=== PATIENT | male | born 1945 | race Two or more races ===

== ENCOUNTER 2016-12-21 15:44 | Emergency (ER) | payer MEDICARE, BC ==
[~2016-12-21] VITALS: Ht 160 cm; Wt 90.7 kg
[2016-12-21 16:12] VITALS: BP 106/63
== END 2016-12-21 16:25 | disposition home or self-care (01) ==
LOC: ER 15:48
DX: Z76.0 Encounter for issue of repeat prescription (principal); E11.9 Type 2 diabetes mellitus without complications
CPT/HCPCS: 99282; A4606; Z7610

== ENCOUNTER 2021-06-29 06:12 | Inpatient (IN) | payer OTHER, BC ==
[~2021-06-29] VITALS: Ht 167.6 cm; Wt 83.5 kg
[2021-06-29] MEDS ORDERED: FUROSEMIDE 20 MG/2 ML VIAL ONE (06:28)
[2021-06-29] MEDS ORDERED: FUROSEMIDE 40 MG/4 ML VIAL ONE (06:28)
[2021-06-29] MEDS ORDERED: FUROSEMIDE 40 MG/4 ML VIAL IV ONE (06:30)
--- NOTE | 2021-06-29 06:34 | NUR ---
BIBRA FROM HOME TO ER BED 6. RESPONSIVE TO VOICE AND TACTILE STIMULI. PER EMS, PT WAS FOUND ON THE FLOOR. PT WAS NOTED WITH 02 SAT OF 82% ON RA AND WAS PLACE ON NON REBREATHER MASK @ 15LPM SATTING@ 100%. PT IS NOTED AFIB W/ HX. PT WAS REPORTED NOT TAKING ANY BLOOD THINNERS BY THE DAUGHTER. NO NOTED VISUAL INJURY RELATED TO FALLING. MD WAS AT THE BEDSIDE FOR EVAL.
--- NOTE | 2021-06-29 06:35 | NUR ---
20G IV LINE ESTABLISHED AT [facility] BLOOD DRAWN AND SENT TO LAB
--- NOTE | 2021-06-29 06:45 | NUR ---
covid swab collected and sent to lab
[2021-06-29 07:00] LABS: BASOPHILS # (AUTO) 0.1 K/uL (0.0-0.2); BASOPHILS % (AUTO) 0.4 % (0.0-2.0); HEMATOCRIT 45 % (39-51); LYMPHOCYTES # (AUTO) 0.6 K/uL (0.8-4.8); LYMPHOCYTES % (AUTO) 4.5 % (20.0-44.0); MEAN CORPUSCULAR HGB CONC 31 g/dl (31.0-36.0); MEAN CORPUSCULAR VOLUME 66 fL (80-96); MONOCYTES # (AUTO) 0.4 K/uL (0.1-1.30); MONOCYTES % (AUTO) 2.9 % (2.0-12.0); NEUTROPHILS # (AUTO) 12.7 K/uL (1.8-8.9); NEUTROPHILS % (AUTO) 92.2 % (43.0-81.0); PLATELET COUNT (AUTO) 209 K/uL (150-450); RED BLOOD CELL COUNT(AUTO) 6.78 MIL/uL (4.5-6.0); WHITE BLOOD COUNT (AUTO) 13.7 K/uL (4.3-11.0)
[2021-06-29] MEDS ORDERED: QUET25TA PO (07:02)
[2021-06-29] MEDS ORDERED: FURO40TA5 PO (07:02)
[2021-06-29 07:20] LABS: ALANINE AMINOTRANSFERASE 23 U/L (12-78); ALBUMIN 3.9 g/dL (3.4-5.0); ALKALINE PHOSPHATASE 84 U/L (46-116); ASPARTATE AMINOTRANSFERASE 18 U/L (15-37); BILIRUBIN,DIRECT 0.4 mg/dL (0.0-0.2); BILIRUBIN,TOTAL 1.8 mg/dL (0.2-1.0); CALCIUM, SERUM 9.3 mg/dL (8.5-10.1); CARBON DIOXIDE 25 mmol/L (21-32); CHLORIDE 99 mmol/L (98-107); CREATININE 1.5 mg/dL (0.6-1.3); POTASSIUM 4.7 mmol/L (3.5-5.1); SODIUM SERUM 136 mmol/L (136-145); TOTAL PROTEIN, SERUM 8.1 g/dL (6.4-8.2); UREA NITROGEN, BLOOD 19 mg/dL (7-18)
[2021-06-29 07:22] LABS: GLUCOSE 421 mg/dL (74-106)
--- NOTE | 2021-06-29 07:53 | NUR ---
UPDATED TOM (DAUGHTER) [phone]
--- NOTE | 2021-06-29 10:55 | NUR ---
CHANGED PATIENT BEDDINGS AND GOWN
[2021-06-29] MEDS ORDERED: INSULIN REGULAR, HUMAN 100 UNIT/ML 10 ML VIAL ONE (10:57)
[2021-06-29] MEDS ORDERED: INSULIN REGULAR, HUMAN 100 UNIT/ML 10 ML VIAL SQ ONE (11:00)
--- NOTE | 2021-06-29 11:31 | NUR ---
Patient will go to 327-2
--- NOTE | 2021-06-29 11:33 | NUR ---
ULTRASOUND AT BEDSIDE
--- NOTE | 2021-06-29 11:38 | NUR ---
NURSING SUP GAVE BED 327-2.
--- NOTE | 2021-06-29 11:46 | NUR ---
GAVE REPORT TO SELENE 327-2
[2021-06-29] MEDS ORDERED: LEVOFLOXACIN 500 MG /D5W 100ML 100 ML IV SCH (12:00)
[2021-06-29] MEDS ORDERED: OLANZAPINE 10 MG VIAL IM PRN (12:00)
[2021-06-29] MEDS ORDERED: VANCOMYCIN 1 GM in IV D5W 250 ML IV ONE ×2 (12:00→13:00)
[2021-06-29] MEDS ORDERED: CEFEPIME 1 GM in IV D5W 50 ML IV SCH (12:00)
[2021-06-29] MEDS ORDERED: DEXTROSE 50%-WATER 50 ML DISP.SYRIN IV PRN (12:00)
[2021-06-29] MEDS ORDERED: CEFEPIME 1 GM in IV D5W 50 ML IV ONE (12:00)
[2021-06-29 12:17] LABS: BILIRUBIN,URINE NEGATIVE (NEGATIVE); COLOR,URINE YELLOW (YELLOW); LEUKOCYTE ESTERASE ,URINE NEGATIVE (NEGATIVE); NITRITE, URINE NEGATIVE (NEGATIVE); PROTEIN,URINE TRACE mg/dl (NEGATIVE); UGLUCOSE >=1000 mg/dL (NEGATIVE); UROBILINOGEN,URINE 0.2 EU/dL (0.2)
[2021-06-29 12:20] VITALS: BP 138/68
[2021-06-29] MEDS ORDERED: PIPERACILLIN /TAZOBACTAM 3.375 G in IV D5W 50 ML IV SCH (12:30)
[2021-06-29] MEDS: FUROSEMIDE 100 MG/10 ML VIAL IV SCH ×3 (12:44→20:37)
[2021-06-29] MEDS: ASPIRIN EC 81 MG TABLET.DR PO SCH (12:44)
[2021-06-29] MEDS: INSULIN REGULAR, HUMAN 100 UNIT/ML 3 ML VIAL SQ PRN ×3 (12:58→21:54)
[2021-06-29] MEDS: BLOOD SUGAR DIAGNOSTIC 1 EACH STRIP VI SCH ×3 (12:59→22:36)
[2021-06-29 13:31] LABS: BACTERIA,URINE Moderate /HPF (None Seen); WBC,URINE 0-2 /HPF (0-3)
[2021-06-29 13:32] LABS: SQUAMOUS EPITHELIAL CELL,UR Few /HPF (None Seen)
--- NOTE | 2021-06-29 14:02 | NUR ---
RN NOTES CALLED PHARMACY SPOKE TO ARIELLA PHARMACIST TO FOLLOW UP ON THE ANTIBIOTICS OF DANK AND MEAGAN. PER ARIELLA, SHE SPOKE WITH DR. BAILEY, AND PER MD TO DC ALL ANTIBIOTICS AND CHANGE TO ZOSYN.
--- NOTE | 2021-06-29 14:30 | NUR ---
SENIOR MARKET RESEARCH ANALYST ADMITTING NOTES PT ADMITTED TO UNIT AT 1215 VIA GURNEY FROM E.R. WITH DX OF RESPIRATORY FAILURE. PT IS LETHARGIC AND CONFUSED, UN-ABLE TO ANSWER QUESTIONS. PT'S DAUGHTER VISITED AND GAVE PT'S INFORMATION AND HX. SHE STATED THAT PT IS DNR/DNI, DPOA PAPERS FAXED AND RECEIVED, DR BAILEY MADE AWRE AND IN AGREEMENT. PT IS ON 02 VIA N/C @ 4LPM, TOLERATING WELL, BREATHING UNLABORED WITH SP02 97% AT THIS TIME. PT HAS IV ACCESS ON LAC G#20 INTACT, PATENT AND FLUSHES WELL. PT PLACED ON EXTERNAL FINANCIAL RECORDING CLERK WITH CURRENT READING OF A-FIOB CONTROLLED , HR 89, NO S/S OF CARDIAC DISTRESS NOTED AT THIS TIME. LUNGS NOTED WITH RALES BILATERALLY ON AUSCULTATION. ABDOMEN, SOFT, NON-TENDER AND NON-DISTENDED WITH BOWEL SOUNDS PRESENT ON FOUR QUADRANTS. PHOTOS OF SKIN ISSUES TAKEN AND FILED IN HIS CHART. SAFETY MEASURES IMPLEMENTED: BED PLACED IN LOWEST LOCKED POSITION WITH SR-UP X3. CALL LIGHT W/IN REACH. WILL CONTINUE TO MONITOR PT.
[2021-06-29] MEDS: PIPERACILLIN /TAZOBACTAM 3.375 G in IV D5W 100 ML IV SCH ×2 (15:17→21:35)
[2021-06-29 15:19] LABS: BASOPHILS # (AUTO) 0.1 K/uL (0.0-0.2); BASOPHILS % (AUTO) 0.4 % (0.0-2.0); HEMATOCRIT 43 % (39-51); HEMOGLOBIN 13.2 g/dL (13.5-17.5); LYMPHOCYTES # (AUTO) 1.2 K/uL (0.8-4.8); LYMPHOCYTES % (AUTO) 9.7 % (20.0-44.0); MEAN CORPUSCULAR HGB CONC 31 g/dl (31.0-36.0); MEAN CORPUSCULAR VOLUME 65 fL (80-96); MONOCYTES # (AUTO) 1.1 K/uL (0.1-1.30); MONOCYTES % (AUTO) 8.9 % (2.0-12.0); NEUTROPHILS # (AUTO) 10.2 K/uL (1.8-8.9); PLATELET COUNT (AUTO) 166 K/uL (150-450); WHITE BLOOD COUNT (AUTO) 12.6 K/uL (4.3-11.0)
[2021-06-29 15:36] LABS: ALANINE AMINOTRANSFERASE 23 U/L (12-78); ALBUMIN 3.5 g/dL (3.4-5.0); ALKALINE PHOSPHATASE 74 U/L (46-116); ASPARTATE AMINOTRANSFERASE 34 U/L (15-37); BILIRUBIN,TOTAL 1.8 mg/dL (0.2-1.0); CALCIUM, SERUM 9.1 mg/dL (8.5-10.1); CARBON DIOXIDE 31 mmol/L (21-32); CHLORIDE 97 mmol/L (98-107); CREATININE 1.4 mg/dL (0.6-1.3); GLUCOSE 314 mg/dL (74-106); POTASSIUM 3.9 mmol/L (3.5-5.1); SODIUM SERUM 134 mmol/L (136-145); TOTAL PROTEIN, SERUM 7.6 g/dL (6.4-8.2); UREA NITROGEN, BLOOD 18 mg/dL (7-18)
--- NOTE | 2021-06-29 16:00 | NUR ---
RN NOTES RECEIVED CALL FROM AVIONICS SUPERVISOR ELLA. PER ELLA PT'S LACTIC ACID WENT DOWN FROM 3.2 TO 2.9. WILL CONTINUE TO MONITOR.
[2021-06-29] MEDS: METOPROLOL TARTRATE 25 MG TABLET PO SCH (16:58)
[2021-06-29] MEDS: HEPARIN SODIUM, PORCINE 5000 UNITS/1 ML VIAL SQ SCH (17:01)
[2021-06-29 17:44] LABS: LYMPHOCYTES % (MANUAL) 13 % (16-48); MONOCYTES % (MANUAL) 9 % (0-11.0); NEUTROPHILS % (MANUAL) 78 (42-76)
--- NOTE | 2021-06-29 18:40 | NUR ---
GEODETIC SURVEY DIRECTOR CLOSING NOTES PT IN BED AWAKE AND RESTING AT MODERATE HIGH BACKREST POSITION. A/O X1, VERBALLY RESPONSIVE, CONFUSED AND FORGETFUL. PT ON 02 VIA N/C @ 4LPM, TOLERATING WELL, BREATHING UNLABORED. IV ACCESS ON LAC G#20 INTACT, PATENT AND FLUSHES WELL. ON EXTERNAL CEMETERY WORKER WITH CURRENT READING OF A-FIB CONTROLLED WITH OCCASIONAL PVC'S, HR 80-90', NO C/O OF CARDIAC DISTRESS VOICED. ALL NEEDS AND CARE PROVIDED WELL. SAFETY MEASURES MAINTAINED: BED IN LOWEST LOCKED POSITION WITH SR-UP X3. CALL LIGHT W/IN REACH. WILL ENDORSE VAIBHAV TO INCENDIARY POWDER MIXER NURSE
--- NOTE | 2021-06-29 20:20 | NUR ---
RN GIANCARLO NOTES PT RECEIVE IN BED AWAKE AND RESTING A/O X1, VERBALLY RESPONSIVE, CONFUSED AND FORGETFUL. PT ON 02 VIA N/C @ 4LPM,NO SIGN SOB/DISTRESS NOTED. IV ACCESS ON LAC G#20 INTACT/PATENT.SAFETY MEASURES MAINTAINED: BED IN LOWEST LOCKED POSITION WITH SR-UP X3. CALL LIGHT W/IN REACH.
[2021-06-29 20:25] VITALS: BP 93/53
[2021-06-29] MEDS: ATORVASTATIN 10 MG TABLET PO SCH (21:46)
[2021-06-29] MEDS: INSULIN GLARGINE, 100 UNIT/ML CARTRIDGE SQ SCH (21:50)
[2021-06-29] MEDS ORDERED: CEFEPIME 2 GM in IV D5W 100 ML IV SCH (22:00)
[2021-06-29] MEDS: *INSULIN REGULAR(HUMULIN R)HUM 100 UNIT/ML VIAL SQ PRN (22:35)
[2021-06-29] MEDS: QUETIAPINE FUMARATE 25 MG TABLET PO SCH (22:40)
[2021-06-29 23:55] VITALS: BP 101/58
[2021-06-30 03:57] VITALS: BP 99/65
--- NOTE | 2021-06-30 05:47 | NUR ---
MEKHIRLaverne MELGAR PULLED OUT. RESTARTED 22 GAUGE ON RIGHT FA WITH GOOD BLOOD RETURN. ZOSYN IVPB INFUSING WELL.
[2021-06-30] MEDS: PIPERACILLIN /TAZOBACTAM 3.375 G in IV D5W 100 ML IV SCH ×3 (06:17→20:47)
[2021-06-30] MEDS: INSULIN REGULAR, HUMAN 100 UNIT/ML 3 ML VIAL SQ PRN ×4 (06:27→21:26)
[2021-06-30 06:31] LABS: BASOPHILS % (AUTO) 0.3 % (0.0-2.0); EOSINOPHILS % (AUTO) 0.5 % (0.0-6.0); HEMATOCRIT 44 % (39-51); HEMOGLOBIN 13.8 g/dL (13.5-17.5); LYMPHOCYTES # (AUTO) 1.4 K/uL (0.8-4.8); LYMPHOCYTES % (AUTO) 11.6 % (20.0-44.0); MEAN CORPUSCULAR HGB CONC 31 g/dl (31.0-36.0); MEAN CORPUSCULAR VOLUME 65 fL (80-96); MONOCYTES % (AUTO) 8.8 % (2.0-12.0); NEUTROPHILS # (AUTO) 9.2 K/uL (1.8-8.9); NEUTROPHILS % (AUTO) 78.8 % (43.0-81.0); PLATELET COUNT (AUTO) 176 K/uL (150-450); RED BLOOD CELL COUNT(AUTO) 6.84 MIL/uL (4.5-6.0); WHITE BLOOD COUNT (AUTO) 11.6 K/uL (4.3-11.0)
[2021-06-30 06:34] LABS: CHOLESTEROL 178 mg/dL (<200); HDL CHOLESTEROL 46 mg/dL (40-60); LDL 117 mg/dL (0-99); TRIGLYCERIDES 102 mg/dL (30-150)
[2021-06-30 06:43] LABS: ALANINE AMINOTRANSFERASE 27 U/L (12-78); ALBUMIN 3.3 g/dL (3.4-5.0); ALKALINE PHOSPHATASE 74 U/L (46-116); ASPARTATE AMINOTRANSFERASE 54 U/L (15-37); BILIRUBIN,TOTAL 2.3 mg/dL (0.2-1.0); CARBON DIOXIDE 32 mmol/L (21-32); CHLORIDE 96 mmol/L (98-107); CREATININE 1.8 mg/dL (0.6-1.3); GLUCOSE 238 mg/dL (74-106); PHOSPHORUS 5.1 mg/dL (2.5-4.9); POTASSIUM 3.7 mmol/L (3.5-5.1); SODIUM SERUM 136 mmol/L (136-145); TOTAL PROTEIN, SERUM 7.4 g/dL (6.4-8.2); UREA NITROGEN, BLOOD 26 mg/dL (7-18)
--- NOTE | 2021-06-30 07:29 | NUR ---
MS SYLVIA OPENING NOTES PATIENT IN BED ASLEEP, EASILY AWAKEN UPON CALL. A/OX2 WITH CONFUSION. REORIENTED PT NEEDED. ON O2 AT 4L VIA NASAL CANNULA, TOLERATING WELL, WITH SPO2 AT 94%. BREATHING EVEN AND UNLABORED. NOT IN ANY SIGN OF DISTRESS. IV ACCESS ON RAC G #20 ON SALINE LOCK, INTACT AND PATENT. SAFETY MEASURES IN PLACE: BED IN LOWEST AND LOCKED POSITION, BED ALARM ON, SIDE RAILS UP X3, CALL LIGHT WITHIN REACH. ENCOURAGED PT TO USE THE CALL LIGHT AND CALL IF ASSISTANCE IS NEEDED. WILL CONTINUE TO MONITOR PT. Addendum: 06/30/21 at 0745 by CAREN WATSON RN ADDENDUM: PT IS ON TELE MONITOR WITH CURRENT READING OF CONTROLLED AFIB WITH HR 90.
[2021-06-30] MEDS: BLOOD SUGAR DIAGNOSTIC 1 EACH STRIP VI SCH ×4 (07:39→21:29)
--- NOTE | 2021-06-30 07:39 | NUR ---
FIELD SERVICES DIRECTOR CLOSING NOTES PT IN BED AWAKE AND RESTING AT MODERATE HIGH BACKREST POSITION. A/O X1, VERBALLY RESPONSIVE, CONFUSED AND FORGETFUL. PT ON 02 VIA N/C @ 4LPM, TOLERATING WELL, BREATHING UNLABORED. IV ACCESS ON RA G#20 INTACT, PATENT AND FLUSHES WELL. ALL NEEDS AND CARE PROVIDED WELL. SAFETY MEASURES MAINTAINED: BED IN LOWEST LOCKED POSITION WITH SR-UP X3. CALL LIGHT W/IN REACH. WILL ENDORSE VAIBHAV TO PIGMENT WEIGHER NURSE
[2021-06-30] MEDS: ASPIRIN EC 81 MG TABLET.DR PO SCH (08:43)
[2021-06-30] MEDS: QUETIAPINE FUMARATE 25 MG TABLET PO SCH ×2 (08:43→17:00)
[2021-06-30] MEDS: HEPARIN SODIUM, PORCINE 5000 UNITS/1 ML VIAL SQ SCH ×2 (08:45→17:13)
[2021-06-30] MEDS: METOPROLOL TARTRATE 25 MG TABLET PO SCH (08:56)
[2021-06-30] MEDS ORDERED: FUROSEMIDE 100 MG/10 ML VIAL IV SCH (09:00)
[2021-06-30] MEDS: POTASSIUM CHLORIDE 20 MEQ TAB.PRT.SR PO SCH ×3 (09:09→11:55)
[2021-06-30 09:18] LABS: LYMPHOCYTES % (MANUAL) 15 % (16-48); MONOCYTES % (MANUAL) 7 % (0-11.0); NEUTROPHILS % (MANUAL) 78 (42-76)
[2021-06-30] MEDS: DIGOXIN 0.125 MG TABLET PO SCH (12:55)
--- NOTE | 2021-06-30 13:22 | NUR ---
RN NOTES PT'S DAUGHTER VISITED AND REQUESTED IF PT CAN GO TO [facility] ONCE MEDICALLY CLEARED AND STABLE. LEFT MESSAGE TO DR BAILEY.
--- NOTE | 2021-06-30 19:30 | NUR ---
ATG ARCHITECT OPENING NOTES RECEIVED PATIENT LYING IN BED AWAKE. A/O X2-3. SPEAKS FARSI AND [facility]. WANTS TO GET OUT OF BED TO USE THE RESTROOM. ASSISTED IN USING THE URINAL BOTTLE. PROVIDED PATIENT EDUCATION SINCE HE DOESN'T KNOW HOW TO USE IT. RE-CONNECTED O2 AT 3LPM VIA NASAL CANULA. NO APPARENT DISTRESS NOTED. ON TELE MONITOR READING UNCONTROLLED A-FIB AT 106 BPM. HAS RIGHT FOREARM IV ACCESS #22G AND SALINE LOCKED. NO S/S OF INFILTRATION NOTED. SAFETY PRECAUTIONS IN PLACE. WILL CONTINUE PLAN OF CARE.
[2021-06-30 20:00] VITALS: BP 108/79
--- NOTE | 2021-06-30 20:30 | NUR ---
HOSPICE MASSAGE THERAPIST NOTES DAUGHTER, TOM, REQUESTED TO GIVE HIS FATHER SLEEPING PILL. NOTIFIED DR. BOLDEN AND ORDERED RESTORIL 15MG PO QHS PRN. NOTED AND CARRIED OUT.
[2021-06-30] MEDS: TEMAZEPAM 15 MG CAPSULE PO PRN (21:04)
[2021-06-30] MEDS: ATORVASTATIN 10 MG TABLET PO SCH (21:04)
[2021-06-30] MEDS: INSULIN GLARGINE, 100 UNIT/ML CARTRIDGE SQ SCH (21:24)
--- NOTE | 2021-06-30 23:24 | NUR ---
FOREIGN SERVICE OFFICER NOTES ADDENDUM ON REGULAR INSULIN ADMINISTERED AROUND 2100. IT SHOULD BE HS, NOT AC.
[2021-07-01] VITALS: BP 115/44
--- NOTE | 2021-07-01 01:00 | NUR ---
PHOTOGRAPH DEVELOPER NOTES PATIENT KEPT VERBALIZING THAT HE DIDN'T GET HIS BREAKFAST, LUNCH AND DINNER. RE-ORIENTED THAT HIS DAUGHTER FED HIM DINNER. PROVIDED SNACKS TWICE. EXPLAINED THAT HE WILL GET HIS BREAKFAST AT 7AM.
--- NOTE | 2021-07-01 03:00 | NUR ---
SOLAR INSTALLER NOTES THE PATIENT USED THE URINAL BOTTLE EARLIER BUT REFUSING TO USE IT NOW. HE ALSO WANTS TO POOP BUT DOESN'T WANT TO USE THE BEDPAN. I ASKED THE MAMMALOGIST TO HELP THE PATIENT GO TO THE RESTROOM. MAXIMUM ASSISTANCE PROVIDED. HAD BM X1, STOOL WNL.
[2021-07-01 04:00] VITALS: BP 124/71
--- NOTE | 2021-07-01 04:24 | NUR ---
UTILITY SYSTEM REPAIRER NOTES JUTE BAG CUTTING MACHINE OPERATOR REPORTED PT HAS V-TACH FOR 6 SECONDS. SEEN PATIENT LYING DOWN, EYES OPEN.
[2021-07-01] MEDS: PIPERACILLIN /TAZOBACTAM 3.375 G in IV D5W 100 ML IV SCH ×3 (05:02→20:39)
[2021-07-01] MEDS: BLOOD SUGAR DIAGNOSTIC 1 EACH STRIP VI SCH ×3 (06:54→17:16)
[2021-07-01] MEDS: INSULIN REGULAR, HUMAN 100 UNIT/ML 3 ML VIAL SQ PRN ×3 (06:55→17:18)
--- NOTE | 2021-07-01 07:11 | NUR ---
MATHEMATICAL PHYSICIST CLOSING NOTES PATIENT LYING IN BED AWAKE. A/O X2, CONFUSED AND FORGETFUL. SPEAKS FARSI AND SWAZI. ABLE TO VERBALIZED NEEDS. HAS O2 AT 3LPM VIA NASAL CANULA. NO SOB OR NOTED. ON TELE MONITOR READING CONTROLLED A-FIB AT 85 BPM. HAS RIGHT FOREARM IV ACCESS #22G AND SALINE LOCKED. INTACT, PATENT AND FLUSHING. HOB ELEVATED FOR ASPIRATION PRECAUTIONS. ALL NEEDS ATTENDED. KEPT DRY AND COMFORTABLE. SAFETY PRECAUTIONS IN PLACE: BED LOCK AND LOW, BED ALARM ON, SIDE RAILS UP X3, CALL LIGHT WITHIN REACH.
[2021-07-01 07:13] LABS: BASOPHILS % (AUTO) 0.5 % (0.0-2.0); EOSINOPHILS % (AUTO) 1.9 % (0.0-6.0); HEMATOCRIT 42 % (39-51); HEMOGLOBIN 13.2 g/dL (13.5-17.5); LYMPHOCYTES # (AUTO) 2.1 K/uL (0.8-4.8); LYMPHOCYTES % (AUTO) 21.6 % (20.0-44.0); MEAN CORPUSCULAR HGB CONC 32 g/dl (31.0-36.0); MEAN CORPUSCULAR VOLUME 65 fL (80-96); MONOCYTES % (AUTO) 10.8 % (2.0-12.0); NEUTROPHILS # (AUTO) 6.3 K/uL (1.8-8.9); NEUTROPHILS % (AUTO) 65.2 % (43.0-81.0); PLATELET COUNT (AUTO) 146 K/uL (150-450); RED BLOOD CELL COUNT(AUTO) 6.46 MIL/uL (4.5-6.0); WHITE BLOOD COUNT (AUTO) 9.7 K/uL (4.3-11.0)
--- NOTE | 2021-07-01 07:20 | NUR ---
RN OPENING NOTES RECEIVED PATIENT IN BED AWAKE, A/O X2, VERBALLY RESPONSIVE. NO SIGNS OF ACUTE DISTRESS NOTED. ON O2 @3LPM VIA N/V, NO SOB NOTED, BREATHING EVEN AND UNLABORED. ON TELE MONITOR WITH CURRENT READING OF CONTROLLED AFIB HR @88. DENIES ANY PAIN AT THIS TIME. NOTED WITH IV ACCESS ON RFA #22G, INTACT AND PATENT, IV ZOSYN STILL ONGOING. SAFETY MEASURE IN PLACE. BED IN LOWEST AND LOCKED POSITION, SR UP X2, CALL LIGHT PLACED WITHIN EASY REACH. WILL CONTINUE TO MONITOR PATIENT.
[2021-07-01 07:33] LABS: ALBUMIN 2.9 g/dL (3.4-5.0); BILIRUBIN,TOTAL 1.8 mg/dL (0.2-1.0); CALCIUM, SERUM 8.3 mg/dL (8.5-10.1); CREATININE 1.3 mg/dL (0.6-1.3); MAGNESIUM 2.1 mg/dL (1.8-2.4); PHOSPHORUS 4.2 mg/dL (2.5-4.9); POTASSIUM 3.3 mmol/L (3.5-5.1); TOTAL PROTEIN, SERUM 6.6 g/dL (6.4-8.2)
[2021-07-01 08:00] VITALS: BP 115/70
[2021-07-01] MEDS: HEPARIN SODIUM, PORCINE 5000 UNITS/1 ML VIAL SQ SCH (08:40)
[2021-07-01] MEDS: QUETIAPINE FUMARATE 25 MG TABLET PO SCH ×2 (08:41→17:20)
[2021-07-01] MEDS: ASPIRIN EC 81 MG TABLET.DR PO SCH (08:52)
[2021-07-01] MEDS ORDERED: POTASSIUM CHLORIDE 20 MEQ TAB.PRT.SR PO ONE (10:00)
[2021-07-01] MEDS: glipiZIDE 5 MG TABLET PO SCH ×2 (10:38→17:20)
[2021-07-01] MEDS: METFORMIN 500 MG TABLET PO SCH ×2 (10:38→17:20)
[2021-07-01] MEDS ORDERED: Quetiapine Fumarate PO (10:40)
[2021-07-01] MEDS ORDERED: ATOR10TA PO (10:40)
[2021-07-01] MEDS ORDERED: APIX5TAB PO (10:40)
[2021-07-01] MEDS ORDERED: Aspirin Ec PO (10:40)
[2021-07-01] MEDS ORDERED: DIGO125T PO (10:40)
[2021-07-01] MEDS ORDERED: SITA50TA PO (10:40)
[2021-07-01] MEDS ORDERED: METF-440 PO (10:40)
[2021-07-01] MEDS ORDERED: GLIP5TAB13 PO (10:40)
[2021-07-01] MEDS ORDERED: AMOX-430 PO (10:43)
[2021-07-01] MEDS: DIGOXIN 0.125 MG TABLET PO SCH (12:28)
[2021-07-01 16:00] VITALS: BP 116/74
--- NOTE | 2021-07-01 17:15 | NUR ---
RN NOTES WHILE PASSING BY PATIENT'S ROOM, PT CALLED MY ATTENTION AND SAID THAT SHE SPOKE WITH HER DAUGHTER AND THAT SHE WILL LEAVE AGAINST [facility] AND DAUGHTER WILL BE HERE SOON. TOLD HER THAT I'LL WAIT FOR HER DAUGHTER TO COME IN.
[2021-07-01] MEDS: APIXABAN 5 MG TABLET PO SCH (17:22)
--- NOTE | 2021-07-01 18:00 | NUR ---
RN NOTES PATIENT'S DAUGHTER SELENA CAME AND I ASKED HER IF SHE REALLY WANTS TO TAKE HER MOTHER'S HOME, SHE SAID YES. PATIENT SAID SORRY THAT IT DIDN'T WORK OUT. DAUGHTER SIGNED THE AMA FORM FOR HER MOTHER MANDY. IV LINE REMOVED, NO ACTIVE BLEEDING NOTED, PRESSURE DRESSING APPLIED. ARM NAME BAND REMOVED. PATIENT'S HOME MEDICATIONS TAKEN FROM PHARMACY AND GIVEN TO PATIENT. PATIENT TOOK ALL HER BELONGINGS. PATIENT LEFT UNIT @1755 ACCOMPANIED PATIENT VIA WHEELCHAIR TO THE PARKING LOT. PATIENT LEFT IN STABLE CONDITION. CN AND EDGE INKER ELIO ABARCA AWARE OF PATIENTS LEAVING AGAINST MEDICAL ADVISE.
--- NOTE | 2021-07-01 18:55 | NUR ---
RN CLOSING NOTES PATIENT IN BED AASLEEP. EASILY AROUSED. A/O X2, WITH CONFUSION AND FORGETFULNESS, REALITY ORIENTATION PROVIDED NEEDED. STABLE ON ROOM AIR. NO SOB NOTED, BREATHING EVEN AND UNLABORED. NO SIGNS OF ACUTE DISTRESS NOTED. IV ACCESS ON RFA #22G, INTACT AND PATENT, SALINE LOCKED. SAFETY MEASURE IN PLACE. BED IN LOWEST AND LOCKED POSITION, SR UP X2, CALL LIGHT PLACED WITHIN EASY REACH. WILL ENDORSE TO NEXT SHIFT FOR CONTINUITY OF CARE.
--- NOTE | 2021-07-01 19:40 | NUR ---
ICE CARVER OPENING NOTES RECEIVED PATIENT ASLEEP IN BED EASILY AROUSABLE. A/O X2. PATIENT WITH REGULAR AND UNLABORED BREATHING ON ROOM AIR TOLERATED WELL. NO SIGNS AND SYMPTOMS OF DISTRESS NOTED AT THIS TIME. NO COMPLAINS OF PAIN OR DISCOMFORT AT THIS TIME. IV ACCESS RFA G #22 SL. IV ACCESS PATENT AND INTACT. SAFETY PRECAUTIONS ENFORCED WITH BED LOCKED AND AT LOWEST POSITION. CALL LIGHT WITHIN REACH AT ALL TIMES. WILL CONTINUE TO MONITOR PATIENT.
[2021-07-01 20:37] VITALS: BP 122/78
[2021-07-01] MEDS: ATORVASTATIN 10 MG TABLET PO SCH (22:52)
[2021-07-01 23:52] VITALS: BP 120/85
[2021-07-02] MEDS: BLOOD SUGAR DIAGNOSTIC 1 EACH STRIP VI SCH ×5 (00:19→21:12)
[2021-07-02 04:39] VITALS: BP 120/85
[2021-07-02] MEDS: PIPERACILLIN /TAZOBACTAM 3.375 G in IV D5W 100 ML IV SCH ×3 (05:26→21:12)
--- NOTE | 2021-07-02 06:45 | NUR ---
LINE STAKER CLOSING NOTES PATIENT LAYING AWAKE IN BED. A/O X2. PATIENT WITH REGULAR AND UNLABORED BREATHING ON ROOM AIR TOLERATED WELL. NO SIGNS AND SYMPTOMS OF DISTRESS NOTED AT THIS TIME. NO COMPLAINS OF PAIN OR DISCOMFORT AT THIS TIME. PATIENT ON TELE MONITOR READING CONTROLLED AFIB @ 94 BPM. IV ACCESS RFA G #22 SL. IV ACCESS PATENT AND INTACT. SAFETY PRECAUTIONS ENFORCED WITH BED LOCKED AND AT LOWEST POSITION. CALL LIGHT WITHIN REACH AT ALL TIMES. WILL ENDORSE CONTINUITY OF CARE TO DAY SHIFT NURSE.
[2021-07-02] MEDS: INSULIN REGULAR, HUMAN 100 UNIT/ML 3 ML VIAL SQ PRN ×3 (07:37→16:55)
--- NOTE | 2021-07-02 07:48 | NUR ---
RN OPENING NOTES Patient seen comfortably lying in bed, no apparent distress noted, respirations even and unlabored, no shortness of breath, denies any pain or discomfort at this time, no grimacing. Call light left within reach, safety precautions in place, brakes locked, side rails up X 2, will monitor closely for any changes.
[2021-07-02 08:30] VITALS: BP 102/50
[2021-07-02] MEDS: ASPIRIN EC 81 MG TABLET.DR PO SCH (08:31)
[2021-07-02] MEDS: LINAGLIPTIN 5 MG TABLET PO SCH (08:31)
[2021-07-02] MEDS: glipiZIDE 5 MG TABLET PO SCH ×2 (08:32→16:51)
[2021-07-02] MEDS: QUETIAPINE FUMARATE 25 MG TABLET PO SCH ×2 (08:32→16:51)
[2021-07-02] MEDS: METFORMIN 500 MG TABLET PO SCH ×2 (08:32→16:51)
[2021-07-02] MEDS: APIXABAN 5 MG TABLET PO SCH ×2 (08:33→16:54)
--- NOTE | 2021-07-02 10:12 | NUR ---
WOUND CARE CONSULT: PT PRESENTS WITH SOME REDNESS TO LOWER LEGS AND DRY LESION TO RT THIGH WITHOUT FLUCTUANCE, TENDERNESS OR ERYTHEMA, PRESENT ON ADMISSION. DEFER TO PMD. WILL SEE PRN.
[2021-07-02 13:00] VITALS: BP 138/75
[2021-07-02] MEDS: DIGOXIN 0.125 MG TABLET PO SCH (13:08)
--- NOTE | 2021-07-02 18:56 | NUR ---
RN CLOSING NOTES Patient lying in bed, no shortness of breath, respirations even and unlabored, no dizziness, no palpitations, no chest pain, denies any pain or discomfort, no grimacing. All due medications given per MD order and tolerated well. Patient has peripheral IV line on right forearm, intact, patent and flushing well, site covered with clean, intact and dry dressings and no swelling, no redness, no c/o pain or discomfort at site. Insulin given per sliding scale as needed per MD order, no s/s of hypo or hyperglycemia, no tremors, no change in level of consciousness. Kept clean and dry, call light left within reach, all needs attended, aspiration precautions observed at all times, kept head of bed elevated, safety precautions in place, frequent visual checks rendered, brakes locked, side rails up X 2, will endorse to next shift for continuity of care.
--- NOTE | 2021-07-02 19:36 | NUR ---
RN OPENING NOTE PATIENT AWAKE IN BED. A/OX2. NO S/S OF DISTRESS, BREATHING ON RM AIR W/O DIFFICULTY. RFA #22 SL. PATIENT IS TELE, BUT I WAS ENDORSED PATIENT KEEPS REMOVING AND REFUSING TELE MONITOR. WILL CONTINUE TO ENCOURAGE PATIENT TO USE MONITOR. SAFETY MEASURES IN PLACE: BED AT LOWEST POSITION, LOCKED, RAILS UP X3, CALL ELI WITHIN REACH. WILL CONTINUE TO MONITOR PATIENT.
[2021-07-02 20:00] VITALS: BP 124/67
[2021-07-02] MEDS: ATORVASTATIN 10 MG TABLET PO SCH (21:12)
--- NOTE | 2021-07-02 22:00 | NUR ---
RN NOTE SPOKE W/ DAUGHTER, TOM MAXWELL. DAUGHTER CALLED FOR AN UPDATE. VERIFIED INFORMATION ON PATIENT AND CONTACT LISTED IN PATIENT CHART BEFORE PROCEEDING TO DISCUSS PATIENT. ALL QUESTIONS ANSWERED. DAUGHTER ASKED TO BE CONNECT TO PATIENT VIA ROOM ACCESS. PATIENT APPEARED HAPPY TO BE SPEAKING WITH HIS DAUGHTER. PATIENT STABLE; WILL CONTINUE TO MONITOR PATIENT.
[2021-07-02] MEDS: *INSULIN REGULAR(HUMULIN R)HUM 100 UNIT/ML VIAL SQ PRN (22:16)
[2021-07-03] VITALS: BP 129/79
--- NOTE | 2021-07-03 02:38 | NUR ---
RN NOTE PATIENT WAS COMPLAINING OF CONSTIPATION AND "PRESSURE". NO PAIN NOTED UPON ASSESSMENT. ON-CALL MD, GABO, CONTACTED FOR PATIENT'S RELIEF. MD APPROVED MILK OF MAGNESIA ORDER. WILL ADMINISTER MED PER MD ORDER. PATIENT STABLE; WILL CONTINUE TO MONITOR PATIENT.
[2021-07-03] MEDS ORDERED: MAGNESIUM HYDROXIDE 30 ML UDC PO ONE (02:45)
[2021-07-03 04:00] VITALS: BP 126/75
[2021-07-03] MEDS: PIPERACILLIN /TAZOBACTAM 3.375 G in IV D5W 100 ML IV SCH ×3 (05:48→21:18)
[2021-07-03] MEDS: BLOOD SUGAR DIAGNOSTIC 1 EACH STRIP VI SCH ×4 (06:32→21:44)
[2021-07-03] MEDS: INSULIN REGULAR, HUMAN 100 UNIT/ML 3 ML VIAL SQ PRN ×2 (06:42→16:50)
--- NOTE | 2021-07-03 07:07 | NUR ---
RN CLOSING NOTE PATIENT AWAKE IN BED. A/OX2. NO S/S OF DISTRESS, BREATHING ON RM AIR W/O DIFFICULTY. RFA #22 SL INTACT AND PATENT. PATIENT HAS CONTINUED TO DECLINE TELE MONITOR. SAFETY MEASURES IN PLACE: BED AT LOWEST POSITION, LOCKED, RAILS UP X3, CALL ELI WITHIN REACH. WILL ENDORSE TO NEXT SHIFT FOR VAIBHAV.
--- NOTE | 2021-07-03 07:30 | NUR ---
RN OPENING NOTE RECEIVED PATIENT AWAKE IN BED. A/OX2. FARSI SPEAKER.WITH EPISODES OF CONFUSION. NO S/S OF DISTRESS NOTED. BREATHING ON RM . NO DIFFICULTY NOTED. RFA #22 SL. PATIENT KEEPS REMOVING AND REFUSING TELE MONITOR. WILL CONTINUE TO ENCOURAGE PATIENT TO USE MONITOR. SAFETY MEASURES IN PLACE: BED AT LOWEST POSITION, LOCKED, RAILS UP X3, CALL ELI WITHIN REACH. WILL CONTINUE TO MONITOR PATIENT.
[2021-07-03] MEDS: glipiZIDE 5 MG TABLET PO SCH ×2 (07:55→16:22)
[2021-07-03 08:35] VITALS: BP_SYST 137; BP_SYST 180; BP_DIAS 83; BP_DIAS 90
[2021-07-03] MEDS: METFORMIN 500 MG TABLET PO SCH ×2 (10:10→16:30)
[2021-07-03] MEDS: ASPIRIN EC 81 MG TABLET.DR PO SCH (10:10)
[2021-07-03] MEDS: QUETIAPINE FUMARATE 25 MG TABLET PO SCH ×2 (10:10→16:30)
[2021-07-03] MEDS: LINAGLIPTIN 5 MG TABLET PO SCH (10:10)
[2021-07-03] MEDS: APIXABAN 5 MG TABLET PO SCH ×2 (10:11→16:31)
[2021-07-03 11:59] VITALS: BP 116/72
[2021-07-03] MEDS: *INSULIN REGULAR(HUMULIN R)HUM 100 UNIT/ML VIAL SQ PRN ×2 (12:03→21:38)
[2021-07-03] MEDS: DIGOXIN 0.125 MG TABLET PO SCH (12:12)
[2021-07-03 16:14] VITALS: BP 104/68
--- NOTE | 2021-07-03 19:50 | NUR ---
RN CLOSING NOTE PATIENT AWAKE IN BED. A/OX2. FARSI SPEAKER.WITH EPISODES OF CONFUSION. NO S/S OF DISTRESS NOTED. BREATHING ON RM . NO DIFFICULTY NOTED. RFA #22 SL. ALL DUE MEDS AND TREATMENTS GIVEN ORDERED. SAFETY MEASURES IN PLACE: BED AT LOWEST POSITION, LOCKED, RAILS UP X3, CALL ELI WITHIN REACH. WILL ENDORSE FOR VAIBHAV.
[2021-07-03 20:00] VITALS: BP 117/70
--- NOTE | 2021-07-03 20:59 | NUR ---
MS/TELE/RN AT INITIAL SHIFT ROUNDS, PATIENT WAS IN BED AWAKE, ALERT, NO C/O PAIN, APPEARS COMFORTABLE, NO SIGNS OF DISTRESS NOTED, CALL LIGHT IN REACH, FALL PRECAUTIONS PER PROTOCOL IMPLEMENTED, WILL MONITOR.
[2021-07-03] MEDS: ATORVASTATIN 10 MG TABLET PO SCH (21:18)
[2021-07-03] MEDS: TEMAZEPAM 15 MG CAPSULE PO PRN (21:27)
[2021-07-04] VITALS: BP 115/68
--- NOTE | 2021-07-04 00:38 | NUR ---
MS/TELE/RN PATIENT IS SLEEPING AT THIS TIME, APPEARS COMFORTABLE, BREATHING EVEN AND UNLABORED, CALL LIGHT IN REACH, WILL CONTINUE TO MONITOR.
[2021-07-04] MEDS: PIPERACILLIN /TAZOBACTAM 3.375 G in IV D5W 100 ML IV SCH ×3 (04:59→21:13)
[2021-07-04] MEDS: BLOOD SUGAR DIAGNOSTIC 1 EACH STRIP VI SCH ×4 (06:28→21:32)
[2021-07-04] MEDS: INSULIN REGULAR, HUMAN 100 UNIT/ML 3 ML VIAL SQ PRN ×3 (06:29→17:25)
--- NOTE | 2021-07-04 06:34 | NUR ---
MS/TELE/RN PATIENT IS AWAKE, COMFORTABLE, NO DISTRESS NOTED, CALL LIGHT IN REACH, ALL NEEDS ATTENDED AT THIS TIME, WILL CONTINUE TO MONITOR.
[2021-07-04 07:11] LABS: CALCIUM, SERUM 8.4 mg/dL (8.5-10.1); CARBON DIOXIDE 28 mmol/L (21-32); CHLORIDE 102 mmol/L (98-107); CREATININE 1.1 mg/dL (0.6-1.3); GLUCOSE 142 mg/dL (74-106); POTASSIUM 3.9 mmol/L (3.5-5.1); SODIUM SERUM 136 mmol/L (136-145); UREA NITROGEN, BLOOD 16 mg/dL (7-18)
[2021-07-04] MEDS: glipiZIDE 5 MG TABLET PO SCH ×2 (07:53→16:50)
--- NOTE | 2021-07-04 08:18 | NUR ---
MS RN OPENING NOTE Patient in bed, awake. A/O x 2. On room air, breathing evenly and unlabored. No SOB or s/s of distress noted. IV access on RFA #22 SL, intact and patent. Patient denies any pain or discomfort at this time. Safety precautions in place: bed in low, locked position; siderails up x 2; call light within reach. Will continue to monitor.
[2021-07-04] MEDS: LINAGLIPTIN 5 MG TABLET PO SCH (10:04)
[2021-07-04] MEDS: ASPIRIN EC 81 MG TABLET.DR PO SCH (10:04)
[2021-07-04] MEDS: METFORMIN 500 MG TABLET PO SCH ×2 (10:04→16:50)
[2021-07-04] MEDS: QUETIAPINE FUMARATE 25 MG TABLET PO SCH ×2 (10:05→16:50)
[2021-07-04] MEDS: APIXABAN 5 MG TABLET PO SCH ×2 (10:07→16:51)
[2021-07-04] MEDS: DIGOXIN 0.125 MG TABLET PO SCH ×2 (12:10→12:50)
--- NOTE | 2021-07-04 18:54 | NUR ---
MS RN CLOSING NOTE Patient in bed, awake. A/O x 1-2, able to make needs known. Stable on room air, breathing evenly and unlabored. No SOB or s/s of distress noted. IV access on RFA #22 SL, intact and patent. Patient denies any pain or discomfort at this time. All needs attended to. Due meds given. Safety precautions maintained: bed in low, locked position; siderails up x 2; call light within reach. Will endorse to seating upholsterer nurse for VAIBHAV.
[2021-07-04 20:00] VITALS: BP 133/88
[2021-07-04] MEDS: *INSULIN REGULAR(HUMULIN R)HUM 100 UNIT/ML VIAL SQ PRN (21:35)
[2021-07-04] MEDS: ATORVASTATIN 10 MG TABLET PO SCH (22:00)
--- NOTE | 2021-07-05 01:13 | NUR ---
MS/TELE/RN ON INITIAL SHIFT ROUND AT 1930, PATIENT WAS AWAKE, COMFORTABLE, NO SIGNS OF DISTRESS NOTED, FAMILY MEMBER AT BEDSIDE. PRESENTLY, PATIENT IS SLEEPING, BREATHING EVEN AND UNLABORED, CALL LIGHT IN REACH, WILL CONTINUE TO MONITOR.
[2021-07-05] MEDS: PIPERACILLIN /TAZOBACTAM 3.375 G in IV D5W 100 ML IV SCH ×2 (05:04→12:15)
[2021-07-05] MEDS: BLOOD SUGAR DIAGNOSTIC 1 EACH STRIP VI SCH ×3 (06:28→18:03)
[2021-07-05] MEDS: INSULIN REGULAR, HUMAN 100 UNIT/ML 3 ML VIAL SQ PRN ×2 (06:29→12:27)
--- NOTE | 2021-07-05 06:33 | NUR ---
MS/TELE/RN PATIENT IS AWAKE, ALERT AND ORIENTED, NO C/O PAIN, NO SIGNS OF DISTRESS NTED, CALL LIGHT IN REACH, ALL NEEDS ATTENDED AT THIS TIME, WILL CONTINUE TO MONITOR.
--- NOTE | 2021-07-05 07:56 | NUR ---
MS RN OPENING NOTE Patient in bed, awake. A/O x 1-2. On room air, breathing evenly and unlabored. No SOB or s/s of distress noted. IV access on RFA #22 SL, intact and patent. Patient denies any pain or discomfort at this time. Redness and swelling on BLE subsiding. Safety precautions in place: bed in low, locked position; siderails up x 2; call light within reach. Will continue to monitor.
[2021-07-05 08:00] VITALS: BP 132/71
[2021-07-05] MEDS: LINAGLIPTIN 5 MG TABLET PO SCH (09:24)
[2021-07-05] MEDS: glipiZIDE 5 MG TABLET PO SCH ×2 (09:24→17:29)
[2021-07-05] MEDS: METFORMIN 500 MG TABLET PO SCH ×2 (09:24→17:29)
[2021-07-05] MEDS: ASPIRIN EC 81 MG TABLET.DR PO SCH (09:24)
[2021-07-05] MEDS: QUETIAPINE FUMARATE 25 MG TABLET PO SCH ×2 (09:24→17:29)
[2021-07-05] MEDS: APIXABAN 5 MG TABLET PO SCH ×2 (09:25→17:30)
[2021-07-05] MEDS ORDERED: GLIP5TAB13 PO (13:33)
[2021-07-05] MEDS: DIGOXIN 0.125 MG TABLET PO SCH (13:33)
[2021-07-05] MEDS ORDERED: AMOX-430 PO (13:33)
[2021-07-05 16:00] VITALS: BP 136/66
--- NOTE | 2021-07-05 18:00 | NUR ---
RN NOTE Report given to Wil of [facility].
--- NOTE | 2021-07-05 19:20 | NUR ---
MS RN OPENING NOTES: RECEIVED PATIENT IN BED, AWAKE, A/O X2. NO S/S OF DISTRESS NOTED. NO COMPLAIN OF PAIN. CALL LIGHT WITHIN REACH. BED ALARM ON. BED IN LOWEST AND LOCKED POSITION. FOR D/C TONIGHT. D/C PACKET PREPARED AND PRINTED BY SYLVIA URRUTIA AND REPORTS GIVEN BY SYLVIA URRUTIA TO [place] IN THE RECEIVING FACILITY.
--- NOTE | 2021-07-05 19:22 | NUR ---
MS RN CLOSING NOTE Patient in bed, resting. A/O x 1-2. Stable on room air, breathing evenly and unlabored. No SOB or s/s of distress noted. IV access on RFA #22 SL, intact and patent. Patient denies any pain or discomfort at this time. Due meds given. All needs attended to. Safety precautions maintained: bed in low, locked position; siderails up x 2; call light within reach. Will endorse to material handler 2nd shift nurse for VAIBHAV.
--- NOTE | 2021-07-05 20:34 | NUR ---
IV ON THE RIGHT FOREARM REMOVED. REPORTS AND D/C PACKET GIVEN TO THE AMBULANCE.
--- NOTE | 2021-07-05 21:00 | NUR ---
CALLED THE DAUGHTER RE: INFORMING THAT THE PATIENT IS ALREADY BEEN PICKED UP BY THE AMBULANCE, WITH PATIENT'S BELONGINGS.
== END 2021-07-05 20:45 | DRG 177 ==
LOC: EDBD 06:18 → ER 06:18 → TELE 11:58 → MED 07-03 21:23
PROVIDERS: ADMIT Internal Medicine; ATTEND Internal Medicine
DX: J69.0 Pneumonitis due to inhalation of food and vomit (principal); J96.01 Acute respiratory failure with hypoxia; N17.0 Acute kidney failure with tubular necrosis; G93.41 Metabolic encephalopathy; L03.116 Cellulitis of left lower limb; E87.1 Hypo-osmolality and hyponatremia; I11.0 Hypertensive heart disease with heart failure; I50.9 Heart failure, unspecified; I48.91 Unspecified atrial fibrillation; Z66 Do not resuscitate; Z79.899 Other long term (current) drug therapy; Z20.822 Contact with and (suspected) exposure to COVID-19; Z79.4 Long term (current) use of insulin; R74.01 Elevation of levels of liver transaminase levels; Z86.73 Personal history of transient ischemic attack (TIA), and cerebral infarction without residual deficits; F09 Unspecified mental disorder due to known physiological condition; E11.65 Type 2 diabetes mellitus with hyperglycemia; F01.50 Vascular dementia, unspecified severity, without behavioral disturbance, psychotic disturbance, mood disturbance, and anxiety; I70.0 Atherosclerosis of aorta; Z91.81 History of falling; W18.30XA Fall on same level, unspecified, initial encounter; Y92.009 Unspecified place in unspecified non-institutional (private) residence as the place of occurrence of the external cause; E86.1 Hypovolemia
CPT/HCPCS: 36415; 70450-TC; 71045-TC; 72125-TC; 76770-TC; 80048-TC; 80053-TC; 80061-TC; 80076-TC; 81001; 82962-TC; 83605-TC; 83735-TC; 83880; 84100-TC; 84484-TC; 85025-TC; 85730-TC; 87040-TC; 87081-TC; 87086-TC; 93307-TC; 93880-TC; 93970-TC; 97116-TC; 97530-TC; C9803; G0378; J0692; J1644; J1815; J1940; J1956; J2543; J3370; J7040; J7060